=== PATIENT | male | born 2000 | race Caucasian/White ===

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

== ENCOUNTER 2023-05-31 17:45 | Emergency (ER) | payer OTHER ==
[~2023-05-31] VITALS: Ht 182.9 cm; Wt 77.1 kg
[2023-06-01] MEDS ORDERED: PEPCID AC20 MG PO (01:24)
[2023-06-01] MEDS ORDERED: LEVSIN0.125 MG PO (01:24)
== END 2023-06-01 01:44 | disposition home or self-care (01) ==
LOC: ER 17:45 → EMR PED 17:54 → ER 17:54 → EMR PED 06-01 01:44
PROVIDERS: Emergency Medicine Pediatric Emergency Medicine
DX: A05.9 Bacterial foodborne intoxication, unspecified (principal); K29.70 Gastritis, unspecified, without bleeding; E86.0 Dehydration; Z20.822 Contact with and (suspected) exposure to COVID-19; Z88.6 Allergy status to analgesic agent